=== PATIENT | male | born 2000 | race Asian ===

== ENCOUNTER 2020-06-18 12:17 | Emergency (ER) | payer BC, SELFPAY ==
--- NOTE | 2020-06-18 13:26 | RAD REPORT ---
EXAM DESCRIPTION: RAD - Foot Left 3 View - 06/18/2020 12:48 pm CLINICAL HISTORY: laceration in [place], eval for foreign body medial side COMPARISON: No comparisons FINDINGS: No fracture, dislocation or periosteal reaction. No acute or destructive bony process. No air or foreign body in the soft tissues. IMPRESSION: Negative left foot examination.
[2020-06-18] MEDS ORDERED: LIDOCAINE 1% MPF 5 ML VIAL ONE (13:36)
[2020-06-18] MEDS ORDERED: CODEINE 30MG/APAP 300MG TAB ONE (13:37)
[2020-06-18] MEDS ORDERED: TETANUS & DIPHTHERIA TOX,ADULT 0.5 ML VIAL ONE (13:37)
--- NOTE | 2020-06-18 13:41 | ER ---
Nurse's Notes [facility] Name: Carl Anderson Age: 19 yrs Sex: Male : 2000 Arrival Date: 06/18/2020 Time: 12:20 Bed 13 Private MD: Diagnosis: Puncture wound without foreign body, left foot Presentation: 06/18 12:30 Chief complaint: Patient states: He was walking in the [place] and he felt something so aj1 through his shoe and into his foot. States he did not see the object that went into his foot, but he thinks it might have been a stick. Laceration noted to left foot, bleeding lightly. Coronavirus screen: Client denies travel out of the [place] in the last 14 days. At this time, the client does not indicate any symptoms associated with coronavirus-19. Ebola Screen: Patient denies travel to an Ebola-affected area in the 21 days before illness onset. Initial Sepsis Screen: Does the patient meet any 2 criteria? No. Patient's initial sepsis screen is negative. Does the patient have a suspected source of infection? No. Patient's initial sepsis screen is negative. Risk Assessment: Do you want to hurt yourself or someone else? Patient reports no desire to harm self or others. Onset of symptoms was June 18, 2020. 12:30 Method Of Arrival: Ambulatory aj1 12:30 Acuity: EVELYN 4 aj1 Triage Assessment: 12:32 General: Appears in no apparent distress. comfortable, Behavior is calm, cooperative, aj1 appropriate for age. Pain:. Historical: - Allergies: 12:32 No Known Allergies; aj1 - Home Meds: 12:32 None [Active]; aj1 - PMHx: 12:32 None; aj1 - PSHx: 12:32 None; aj1 - Immunization history:: Adult Immunizations up to date. - Social history:: Smoking status: Patient denies any tobacco usage or history of. - Family history:: not pertinent. - Hospitalizations: : No recent hospitalization is reported. Screenin:33 Abuse screen: Denies threats or abuse. Denies injuries from another. Nutritional aj1 screening: No deficits noted. Tuberculosis screening: No symptoms or risk factors identified. Fall Risk None identified. Assessment: 12:33 General: Appears in no apparent distress. comfortable, Behavior is calm, cooperative, aj1 appropriate for age. Pain: Complains of pain in left foot. Neuro: Level of Consciousness is awake, alert, obeys commands, Oriented to person, place, time, situation. Cardiovascular: Patient's skin is warm and dry. Respiratory: Airway is patent Respiratory effort is even, unlabored, Respiratory pattern is regular, symmetrical. GI: No signs and/or symptoms were reported involving the gastrointestinal system. : No signs and/or symptoms were reported regarding the genitourinary system. EENT: No signs and/or symptoms were reported regarding the EENT system. Derm: Skin is pink, warm \T\ dry. Musculoskeletal: No signs and/or symptoms reported regarding the musculoskeletal system. Circulation, motion, and sensation intact. Injury Description: Laceration sustained to left foot is bleeding lightly. 13:41 Reassessment: Patient appears in no apparent distress at this time. No changes from aj1 previously documented assessment. Patient and/or family updated on plan of care and expected duration. Pain level reassessed. Patient is alert, oriented x 3, equal unlabored respirations, skin warm/dry/pink. 13:50 Reassessment: Christina Quinonez NP at bedside to suture laceration to left foot. aj1 Vital Signs: 12:30 BP 122 / 95; Pulse 85; Resp 18; Temp 97.9; Pulse Ox 100% on R/A; Weight 58.97 kg (R); aj1 Height 5 ft. 10 in. (177.80 cm) (R); 13:40 BP 139 / 83; Pulse 74; Resp 16; Pulse Ox 100% on R/A; aj1 12:30 Body Mass Index 18.65 (58.97 kg, 177.80 cm) aj1 ED Course: 12:20 Patient arrived in ED. as 12:29 Samir Osuna MD is Attending Physician. rn 12:30 Mari Vail RN is Primary Nurse. aj1 12:32 Triage completed. aj1 12:33 Arm band placed on Patient placed in an exam room. aj1 12:33 Patient has correct armband on for positive identification. Bed in low position. Call aj1 light in reach. Side rails up X 1. 12:33 No provider procedures requiring assistance completed. aj1 12:48 XRAY Foot LEFT 3 View In Process Unspecified. EDMS 14:33 Patient did not have IV access during this emergency room visit. aj1 Administered Medications: 13:29 Drug: Tylenol #3 (300 mg-30 mg) 1 tablet Route: PO; rb1 13:41 Follow up: Response: No adverse reaction aj1 13:30 Drug: Tetanus-Diphtheria Toxoid Adult 0.5 ml {Faucet Polisher: [employer]. Exp: rb1 11/13/2021. Lot #: [id number]. } Route: IM; Site: right deltoid; 13:41 Follow up: Response: No adverse reaction aj1 13:30 Drug: Lidocaine (1 %) 5 ml {Note: Administered by Christina Quinonez NP.} Volume: 5 ml; Route: aj1 Infiltration; 13:42 Follow up: Response: No adverse reaction aj1 Outcome: 13:40 Discharge ordered by . rn 14:33 Discharged to home via wheelchair. aj1 14:33 Condition: good 14:33 Discharge instructions given to patient, Instructed on discharge instructions, follow up and referral plans. medication usage, Demonstrated understanding of instructions, follow-up care, medications, Prescriptions given X 1. 14:33 Patient left the ED. aj1 Signatures: Dispatcher [employer] EDOK Mari Vail RN RN aj1 Phoebe Doan Roman, MD MD rn Barber, Rebecca, RN RN rb1 Corrections: (The following items were deleted from the chart) 12:33 12:30 Chief complaint: Patient states: He was walking in the [place] and he felt aj1 something so through his shoe and into his foot. States he did not see the object that went into his foot, but he thinks it might have been a stick. Laceration noted to right foot, bleeding lightly aj1
--- NOTE | 2020-06-18 13:42 | EDPHYS ---
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 13:31 The patient presents with an injury, a puncture wound. The complaints affect the left rn foot. Onset: The symptoms/episode began/occurred just prior to arrival. Modifying factors: The symptoms are alleviated by nothing, the symptoms are aggravated by nothing. Associated signs and symptoms: Pertinent negatives: fever, rash, weakness. Severity of symptoms: At their worst the symptoms were mild, in the emergency department the symptoms are unchanged. The patient has not experienced similar symptoms in the past. Reports puncture wound to left foot, no fever, was wearing shoes, was in heavy brush, reports does not feel foreign body in foot, + small cut to left foot. . Historical: - Allergies: 12:32 No Known Allergies; aj1 - Home Meds: 12:32 None [Active]; aj1 - PMHx: 12:32 None; aj1 - PSHx: 12:32 None; aj1 - Immunization history:: Adult Immunizations up to date. - Social history:: Smoking status: Patient denies any tobacco usage or history of. - Family history:: not pertinent. - Hospitalizations: : No recent hospitalization is reported. ROS: 13:31 Constitutional: Negative for fever, chills, and weight loss, MS/Extremity: + left foot rn injury and laceration Skin: + laceration to left foot Exam: 13:31 Constitutional: This is a well developed, well nourished patient who is awake, alert, rn and in no acute distress. Skin: Warm, dry, no evidence of cellulitis, 2.5 cm superficial laceration medial left foot, no active bleeding, appears. Vital Signs: 12:30 BP 122 / 95; Pulse 85; Resp 18; Temp 97.9; Pulse Ox 100% on R/A; Weight 58.97 kg (R); aj1 Height 5 ft. 10 in. (177.80 cm) (R); 13:40 BP 139 / 83; Pulse 74; Resp 16; Pulse Ox 100% on R/A; aj1 12:30 Body Mass Index 18.65 (58.97 kg, 177.80 cm) aj1 Laceration: 14:10 Wound Repair of 2cm ( 0.8in ) subcutaneous laceration to instep of left foot. Linear pm1 shaped.. Distal neuro/vascular/tendon intact. Anesthesia: Local anesthetic administered with 3 mls of 1% lidocaine. Wound prep: Extensive cleansing with betadine with hibiclenz by nc, Wound irrigation with saline by nc, Wound explored extensively, Copious irrigation. Skin closed with 5 4-0 Prolene using simple sutures and sterile technique. Dressed with 4x4's, Kerlix. Patient tolerated well. MDM: 12:29 Patient medically screened. rn 06/18 12:33 Order name: XRAY Foot LEFT 3 View; Complete Time: 13:31 rn 06/18 13:18 Order name: Prolene, Sutures; Complete Time: 13:37 pm1 06/18 13:18 Order name: Dressing - Wound; Complete Time: 13:37 pm1 06/18 13:18 Order name: Gloves, Sterile; Complete Time: 13:37 pm1 06/18 13:18 Order name: Setup Suture Tray; Complete Time: 13:37 pm1 Administered Medications: 13:29 Drug: Tylenol #3 (300 mg-30 mg) 1 tablet Route: PO; rb1 13:41 Follow up: Response: No adverse reaction aj1 13:30 Drug: Tetanus-Diphtheria Toxoid Adult 0.5 ml {Certified Addiction Counselor: [employer]. Exp: rb1 11/13/2021. Lot #: [id number]. } Route: IM; Site: right deltoid; 13:41 Follow up: Response: No adverse reaction aj1 13:30 Drug: Lidocaine (1 %) 5 ml {Note: Administered by Christina Quinonez NP.} Volume: 5 ml; Route: aj1 Infiltration; 13:42 Follow up: Response: No adverse reaction aj1 Disposition: 15:38 Co-signature as Attending Physician, Samir Osuna MD. rn Disposition: 06/18/20 13:40 Discharged to Home. Impression: Puncture wound without foreign body, left foot. - Condition is Stable. - Discharge Instructions: Puncture Wound, Sutured Wound Care. - Prescriptions for Doxycycline Hyclate 100 mg Oral Tablet - take 1 tablet by ORAL route once daily; 10 tablet. - Medication Reconciliation Form, Thank You Letter, Antibiotic Education, Prescription Opioid Use form. - Follow up: Private Physician; When: 14 days; Reason: Staple/Suture removal. - Problem is new. - Symptoms have improved. Signatures: Dispatcher [employer] EDMari Rivera RN RN aj1 Samir Osuna MD MD rn Barber, Rebecca, RN RN rb1 Dajuan Quinonez, TA[employer] SUPERVISOR [employer]ESSAGE [employer]ICE pm1 Corrections: (The following items were deleted from the chart) 14:33 13:40 06/18/2020 13:40 Discharged to Home. Impression: Puncture wound without foreign aj1 body, left foot. Condition is Stable. Forms are Medication Reconciliation Form, Thank You Letter, Antibiotic Education, Prescription Opioid Use. Follow up: Private Physician; When: 14 days; Reason: Staple/Suture removal. Problem is new. Symptoms have improved. rn
[2020-06-18 14:50] VITALS: TEMP 97.9; O2SAT 100
[2020-06-18 14:52] VITALS: BP 139/83
== END 2020-06-18 14:33 | disposition home or self-care (01) ==
LOC: ER 12:17
PROC: 0JQR0ZZ Repair Left Foot Subcutaneous Tissue and Fascia, Open Approach (ICD-10-PCS; principal; 2020-06-18)
DX: S91.332A Puncture wound without foreign body, left foot, initial encounter (principal); W26.9XXA Contact with unspecified sharp object(s), initial encounter; Y93.01 Activity, walking, marching and hiking; Y92.828 Other wilderness area as the place of occurrence of the external cause; Z23 Encounter for immunization
CPT/HCPCS: 90471; 90714; 99283